=== PATIENT | female | born 1970 | race Hispanic/Latino ===

== ENCOUNTER 2018-10-07 15:51 | Emergency (ER) | payer OTHER ==
[2018-10-07 16:28] LABS: CREATININE 0.7 mg/dL (0.5-1.5); POTASSIUM 3.1 mmol/L (3.5-5.1)
[2018-10-07 16:29] LABS: PARTIAL THROMBOPLASTIN TIME 27.7 SEC (26.3-35.5)
[2018-10-07 16:34] LABS: ALBUMIN 4.3 g/dL (3.5-5.0); BILIRUBIN,TOTAL 0.4 mg/dL (0.2-1.0)
[2018-10-07 16:49] LABS: HCG,QUAL RESULT NEGATIVE (NEGATIVE)
[2018-10-07] MEDS ORDERED: ONDANSETRON HCL 4 MG/2 ML VIAL ONE (16:49)
[2018-10-07 16:50] LABS: APPEARANCE,URINE Clear (CLEAR); BILIRUBIN,URINE Negative (NEGATIVE); COLOR,URINE Yellow (YELLOW); GLUCOSE, URINE (UA) Negative (NEGATIVE); KETONES,URINE Negative (NEGATIVE); LEUKOCYTE ESTERASE ,URINE Negative (NEGATIVE); NITRATE,URINE Negative (NEGATIVE); OCCULT BLOOD,URINE Negative (NEGATIVE); PH,URINE 6.5 (5.0-8.0); PROTEIN,URINE Negative (NEGATIVE); UROBILINOGEN,URINE 0.2 mg/dL (0.2-1.0)
[2018-10-07 16:50] LABS: PROTHROMBIN TIME 10.5 SEC (9.6-11.6)
[2018-10-07] MEDS ORDERED: POTASSIUM CHLORIDE 20 MEQ ERTAB PO ONE (16:50)
[2018-10-07 16:52] LABS: AMPHET/METH SCREEN,URINE NEGATIVE (NEGATIVE); BARBITURATE SCREEN, URINE NEGATIVE (NEGATIVE); BENZODIAZEPINES SCREEN,URINE NEGATIVE (NEGATIVE); CANNABINOID SCREEN,URINE NEGATIVE (NEGATIVE); COCAINE SCREEN,URINE NEGATIVE (NEGATIVE); OPIATE SCREEN,URINE NEGATIVE (NEGATIVE); PHENCYCLIDINE SCREEN,URINE NEGATIVE (NEGATIVE)
[2018-10-07 16:53] LABS: BASOPHILS % (AUTO) 0.9 % (0.0-5.0); EOSINOPHILS % (AUTO) 0.6 % (0.0-8.0); HEMATOCRIT 36.9 % (36-48); LYMPHOCYTES % (AUTO) 44.4 % (21.0-51.0); MEAN CORPUSCULAR HEMOGLOBIN 31.6 pg (27.0-33.0); MEAN CORPUSCULAR HGB CONC 34.6 g/dL (32.0-36.0); MEAN CORPUSCULAR VOLUME 91.3 fL (79-99); MONOCYTES % (AUTO) 5.6 % (3.0-13.0); NEUTROPHILS % (AUTO) 48.5 % (40.0-77.0); PLATELET COUNT (AUTO) 192 K/uL (130-400); RED BLOOD CELL COUNT(AUTO) 4.04 MIL/uL (4.00-5.50); WHITE BLOOD COUNT (AUTO) 5.6 K/uL (4.8-10.8)
== END 2018-10-07 19:06 | disposition home or self-care (01) ==
LOC: EDH 15:51
DX: K29.70 Gastritis, unspecified, without bleeding (principal); R07.89 Other chest pain; R03.0 Elevated blood-pressure reading, without diagnosis of hypertension; K21.9 Gastro-esophageal reflux disease without esophagitis; Z88.0 Allergy status to penicillin
CPT/HCPCS: 36415; 71045; 80053; 80305; 81003; 81025; 82150; 82550; 83690; 84484 ×2; 85025; 85610; 85730; 93005 ×2; 96374; 99285; J2405